=== PATIENT | male | born 1990 | race African-American/Black ===

== ENCOUNTER 2021-06-05 08:03 | Emergency (ER) | payer BC ==
[~2021-06-05] VITALS: Ht 172.7 cm; Wt 77.0 kg
[~2021-06-05 08:03] MED LIST: NAPR-681 PO
[2021-06-05 08:29] VITALS: BP 166/88
[2021-06-05] MEDS ORDERED: LIDOCAINE HCL/EPINEPHRINE 1%-EPI 1:100,000 20 ML VIAL INFIL ONE (08:45)
[2021-06-05] MEDS ORDERED: BACITRACIN ZINC OINT UDPKT TOP ONE (08:45)
[2021-06-05] MEDS ORDERED: LIDOCAINE HCL/EPINEPHRINE 1%-EPI 1:100,000 50 ML VIAL INFIL NR (09:00)
[2021-06-05] MEDS ORDERED: IBUP-2029 MT (10:30)
== END 2021-06-05 10:38 | disposition home or self-care (01) ==
LOC: ER 08:03
DX: M70.21 Olecranon bursitis, right elbow (principal); Y93.89 Activity, other specified
CPT/HCPCS: 73080; 87075; 99285; J3490

== ENCOUNTER 2021-06-18 13:46 | Emergency (ER) | payer BC ==
[~2021-06-18] VITALS: Ht 177.8 cm; Wt 87.0 kg
[~2021-06-18 13:46] MED LIST changes: +IBUP-2029 MT
[2021-06-18 14:22] VITALS: BP 116/80
[2021-06-18] MEDS ORDERED: IBUPROFEN 600MG TABLET PO ONE (15:45)
[2021-06-18] MEDS ORDERED: BACITRACIN ZINC OINT UDPKT TOP ONE (15:45)
== END 2021-06-18 16:44 | disposition home or self-care (01) ==
LOC: ER 13:58
DX: M70.21 Olecranon bursitis, right elbow (principal); Y93.89 Activity, other specified
CPT/HCPCS: 20605; 99283